=== PATIENT | female | born 1975 | race Hispanic/Latino ===

== ENCOUNTER 2017-04-25 12:57 | Emergency (ER) | payer BC, OTHER ==
--- NOTE | 2017-04-25 14:09 | RAD ---
2 VIEWS CHEST: Date: 04/25/17 COMPARISON: None. HISTORY: Chest pain. FINDINGS: Two views of the chest show normal sized cardiomediastinal silhouette. There is no evidence of conso lidation, mass, or pleural effusion. A cardiac monitoring device projects over the left chest. IMPRESSION: No evidence of acute cardiopulmonary disease. POS: [facility]
[2017-04-25 14:24] LABS: #Basophils 0.1 thou/uL (0.0-0.2); #Eosinphils 0.1 thou/uL (0.0-0.7); #Lymphocytes 3.7 thou/uL (1.20-3.40); #Monocytes 0.7 thou/uL (0.11-0.59); #Neutrophils 7.2 thou/uL (1.40-6.50); %Basophils 0.7 % (0.0-1.0); %Eosinophils 0.5 % (0.0-10.0); %Lymphocytes 31.7 % (21.0-51.0); %Monocytes 5.9 % (0.0-10.0); %Neutrophils 61.1 % (42.0-75.0); Hemoglobin 14.7 g/dL (12.0-16.0); Mean Corpuscular HGB CONC 34.5 g/dL (32.0-36.0); Mean Corpuscular Hemoglobin 35.5 pg (27.0-31.0); Mean Corpuscular Volume 102.7 fl (81.0-99.0); Mean Platelet Volume 9.4 fL (7.4-10.4); Platelet Count 282 thou/uL (130-400); RBC Distribution Width 11.2 % (11.5-14.5); Red Blood Cell (RBC) Count 4.13 mill/uL (4.20-5.40); White Blood Cell (WBC) Count 11.7 thou/uL (4.8-10.8)
[2017-04-25 14:27] LABS: ALT (SGPT) 19 U/L (8-55); AST (SGOT) 16 U/L (5-34); Albumin 3.9 g/dL (3.5-5.0); Alkaline Phosphatase 120 U/L (40-150); Anion Gap 19 mmol/L (10-20); BUN (Urea Nitrogen) 13 mg/dL (7.0-18.7); Bilirubin, Total 0.4 mg/dL (0.2-1.2); Calc. Creatinine Clearance 0 mL/min (70-130); Calcium 9.1 mg/dL (7.8-10.44); Carbon Dioxide 24 mmol/L (22-29); Chloride 101 mmol/L (98-107); Estimated GFR-MDRD 71; Globulin 3.3 g/dL (2.4-3.5); Glucose 74 mg/dL (70-105); Potassium 3.7 mmol/L (3.5-5.1); Protein, Total 7.2 g/dL (6.0-8.3); Sodium 140 mmol/L (136-145)
[2017-04-25 14:34] LABS: CKMB 1.1 ng/mL (0-6.6); Troponin I Less than 0.010 ng/mL (< 0.028)
== END 2017-04-25 15:10 | disposition home or self-care (01) ==
LOC: MADERS 12:57
DX: R00.2 Palpitations (principal); I48.91 Unspecified atrial fibrillation; K21.9 Gastro-esophageal reflux disease without esophagitis; I10 Essential (primary) hypertension; F41.9 Anxiety disorder, unspecified
CPT/HCPCS: 71020; 80053; 82553; 84484; 85025; 85379; 93005; 94760

== ENCOUNTER 2019-07-01 18:24 | Emergency (ER) | payer OTHER ==
[~2019-07-01 18:24] MED LIST: Iopamidol 370 76% 100 ML VIAL ONE
[2019-07-01] MEDS ORDERED: Ondansetron PF 4 MG/2 ML Vial ONE ×2 (19:03→21:42)
[2019-07-01] MEDS ORDERED: Sodium Chloride 0.9% 1,000 ML ONE (19:03)
[2019-07-01] MEDS ORDERED: Dicyclomine 10 MG CAP ONE (19:03)
[2019-07-01 19:14] LABS: #Basophils 0.1 thou/uL (0.0-0.2); #Lymphocytes 1.2 thou/uL (1.20-3.40); #Monocytes 1.1 thou/uL (0.11-0.59); %Basophils 0.7 % (0.0-1.0); %Lymphocytes 7.4 % (21.0-51.0); %Monocytes 6.5 % (0.0-10.0); %Neutrophils 85.4 % (42.0-75.0); Hemoglobin 14.4 g/dL (12.0-16.0); Mean Corpuscular HGB CONC 34.4 g/dL (32.0-36.0); Mean Corpuscular Hemoglobin 33.5 pg (27.0-31.0); Mean Corpuscular Volume 97.4 fL (78.0-98.0); Mean Platelet Volume 10.8 fL (7.4-10.4); Platelet Count 193 thou/uL (130-400); Prothrombin Time 13.1 SEC (12.0-14.7); RBC Distribution Width 11.4 % (11.5-14.5); Red Blood Cell (RBC) Count 4.32 mill/uL (4.20-5.40); White Blood Cell (WBC) Count 16.4 thou/uL (4.8-10.8)
[2019-07-01 19:25] LABS: ALT (SGPT) 20 U/L (8-55); AST (SGOT) 17 U/L (5-34); Albumin 4.2 g/dL (3.5-5.0); Alkaline Phosphatase 98 U/L (40-150); Anion Gap 16 mmol/L (10-20); BUN (Urea Nitrogen) 15 mg/dL (7.0-18.7); Bilirubin, Total 0.5 mg/dL (0.2-1.2); Calc. Creatinine Clearance 0 mL/min (70-130); Calcium 9.2 mg/dL (7.8-10.44); Carbon Dioxide 23 mmol/L (22-29); Chloride 104 mmol/L (98-107); Estimated GFR-MDRD 76; Globulin 3.2 g/dL (2.4-3.5); Glucose 107 mg/dL (70-105); Potassium 3.3 mmol/L (3.5-5.1); Protein, Total 7.4 g/dL (6.0-8.3); Sodium 140 mmol/L (136-145)
[2019-07-01] MEDS ORDERED: Fentanyl 100 MCG/2 ML VIAL ONE ×2 (19:54→21:11)
[2019-07-01] MEDS ORDERED: Ciprofloxacin 500 MG TAB ONE (20:33)
--- NOTE | 2019-07-01 21:16 | CT ---
CT Abdomen Pelvis W Con HISTORY: Abdominal pain with onset of bloody diarrhea today. COMPARISON: 03/11/2019 exam. FINDINGS: The lung bases are clear of any infiltrative process. The liver, spleen and pancreas regions appear unremarkable. The gallbladder is been removed. A gastri c sleeve procedure is been performed. Right and left adrenal glands are normal. There is cortical scarring involving the right kidney. Left kidney is normal in appearance. There is no significant periaortic or mesenteric adenopathy. The colon is not distended however there is evidence of colon wall thickening particularly involving the left colon but also changes on the right. Celiac and superior mesenteric arteries are patent and and TRE is identified. There is no pneumatosis. No free air. CT of pelvis performed with contrast: A 3.3 cm cyst is seen in the region of the left adnexa. No free fluid, adenopathy or mass. IMPRESSION: Findings of a diffuse colitis. The wall thickening is particularly pronounced within the left colon. No pneumatosis identified. Findings telephoned to Dr. Cesar.
[2019-07-01] MEDS ORDERED: metroNIDAZOLE 500 MG/100 ML BAG ONE (21:19)
== END 2019-07-01 22:10 | disposition short-term general hospital (02) ==
LOC: MADERS 18:24
DX: K52.9 Noninfective gastroenteritis and colitis, unspecified (principal); I49.9 Cardiac arrhythmia, unspecified; I48.91 Unspecified atrial fibrillation; K21.9 Gastro-esophageal reflux disease without esophagitis; I10 Essential (primary) hypertension; M79.7 Fibromyalgia; F41.9 Anxiety disorder, unspecified; Z79.899 Other long term (current) drug therapy; Z79.82 Long term (current) use of aspirin
CPT/HCPCS: 74177; 80053; 83605; 85025; 85610; 85730; 96361; 96365; 96375; 96376; J2405; J3010; J7050; Q9967

== ENCOUNTER 2019-11-22 10:09 | Emergency (ER) | payer OTHER, SELFPAY ==
[2019-11-22 11:07] LABS: #Basophils 0.1 thou/uL (0.0-0.2); #Eosinphils 0.1 thou/uL (0.0-0.7); #Lymphocytes 3.3 thou/uL (1.20-3.40); #Monocytes 0.7 thou/uL (0.11-0.59); #Neutrophils 2.4 thou/uL (1.40-6.50); %Basophils 1.3 % (0.0-1.0); %Eosinophils 1.9 % (0.0-10.0); %Lymphocytes 49.8 % (21.0-51.0); %Monocytes 10.2 % (0.0-10.0); %Neutrophils 36.8 % (42.0-75.0); Hemoglobin 12.8 g/dL (12.0-16.0); Platelet Count 218 thou/uL (130-400); RBC Distribution Width 10.7 % (11.5-14.5); White Blood Cell (WBC) Count 6.5 thou/uL (4.8-10.8)
[2019-11-22] MEDS ORDERED: Prochlorperazine 10 MG/2 ML VIAL ONE (11:09)
[2019-11-22] MEDS ORDERED: Morphine 2 MG/ML SYRINGE ONE (11:09)
[2019-11-22] MEDS ORDERED: Sodium Chloride 0.9% 1,000 ML ONE ×2 (11:09→12:35)
[2019-11-22] MEDS ORDERED: Pantoprazole 40 MG VIAL ONE (11:09)
[2019-11-22 11:14] LABS: ALT (SGPT) 12 U/L (8-55); AST (SGOT) 15 U/L (5-34); Alkaline Phosphatase 79 U/L (40-110); Anion Gap 16 mmol/L (10-20); BUN (Urea Nitrogen) 11 mg/dL (7.0-18.7); Bilirubin, Total 0.8 mg/dL (0.2-1.2); Calc. Creatinine Clearance 0 mL/min (70-130); Carbon Dioxide 24 mmol/L (22-29); Chloride 107 mmol/L (98-107); Estimated GFR-MDRD 89; Globulin 2.8 g/dL (2.4-3.5); Glucose 83 mg/dL (70-105); Lipase 9 U/L (8-78); Potassium 3.5 mmol/L (3.5-5.1); Protein, Total 6.8 g/dL (6.0-8.3); Sodium 143 mmol/L (136-145)
[2019-11-22] MEDS ORDERED: diphenhydrAMINE 50 MG/ML VIAL ONE (11:22)
[2019-11-22] MEDS ORDERED: Iopamidol 370 76% 100 ML VIAL ONE (11:39)
--- NOTE | 2019-11-22 11:51 | CT ---
CT OF THE ABDOMEN AND PELVIS WITH IV CONTRAST INDICATION: Abdominal pains with nausea vomiting COMPARISON: CT the abdomen and pelvis dated 07/01/2019 FINDINGS: ABDOMEN: Lung bases: Clear Liver: No focal lesion. Gallbladder: Surgically absent Pancreas: Normal. Adrenal glands: Normal. Spleen: Normal. Kidneys and ureters: Lobulated appearance of the right kidney is stable. Mild atrophy of the right ki dney is stable appearing. No hydronephrosis evident. Left kidney is normal-appearing. Vasculature: Normal. Lymph nodes:No lymphadenopathy. Free fluid in abdomen:No free fluid is evident. PELVIS: Small and large bowel: There is postsurgical change of the gastroplasty. There is mild T stool within the colon. Small bowel is of normal caliber. Appendix:Not definitely seen Bladder: Decompressed Rectal and perirectal soft tissues:Normal. Reproductive structures: Not visualized Free fluid in pelvis: No free fluid is evident. Lymphadenopathy pelvis: No lymphadenopathy is evident. Osseous structures: No acute osseous abnormality. No destructive osteolytic or osteoblastic lesion i s identified. There is scattered degenerative and osteoarthritic changes. Soft tissues:Normal. IMPRESSION: 1. No acute abnormality.
[2019-11-22] MEDS ORDERED: Fentanyl 100 MCG/2 ML VIAL ONE ×3 (11:59→14:31)
[2019-11-22] MEDS ORDERED: Ondansetron PF 4 MG/2 ML Vial ONE (12:18)
[2019-11-22 14:14] LABS: Bilirubin Negative (Negative); Blood, Urine Negative (Negative); Clarity Clear (Clear); Glucose, Urine (Dipstick) Negative (Negative); Leukocyte Negative (Negative); Nitrite Negative (Negative); Protein, Urine (Dipstick) Negative (Neg-Trace); Urobilinogen 0.2 mg/dL (Less than 2)
[2019-11-22] MEDS ORDERED: Lidocaine Viscous Sol 2% 15 ml UD Cup ONE (14:21)
[2019-11-22] MEDS ORDERED: Lidocaine 2% PF 100 mg/5 ml Syringe ONE (14:25)
== END 2019-11-22 15:48 | disposition short-term general hospital (02) ==
LOC: MADERS 10:09
DX: R11.2 Nausea with vomiting, unspecified (principal); R10.9 Unspecified abdominal pain; K21.9 Gastro-esophageal reflux disease without esophagitis; G47.30 Sleep apnea, unspecified; I10 Essential (primary) hypertension; F41.9 Anxiety disorder, unspecified; Z79.899 Other long term (current) drug therapy; Z79.82 Long term (current) use of aspirin
CPT/HCPCS: 74177; 80053; 81003; 83605; 83690; 85025; 96361; 96374; 96375; 96376; C9113; J0780; J1200; J2001; J2270; J2405; J3010; J7050; Q9967

== ENCOUNTER → 2019-12-05 | Day surgery (SDC) | payer OTHER ==
[~2019-12-05] MED LIST changes: -Iopamidol 370 76% 100 ML VIAL ONE; +Multivit, Adult Inj 10 ML VIAL ONE; +Ondansetron PF 4 MG/2 ML Vial ONE; +Sodium Chloride 0.9% 1,000 ML BAG ONE
== END ==
LOC: MADER/OP 10:29
PROVIDERS: ATTEND Surgery
DX: E86.0 Dehydration (principal); Z88.5 Allergy status to narcotic agent
CPT/HCPCS: 96361; 96365; 96375; 96376; J2405; J7050

== ENCOUNTER 2020-01-31 11:24 | Outpatient (CLI) | payer OTHER ==
[2020-01-31 12:17] LABS: #Eosinphils 0.1 thou/uL (0.0-0.7); #Lymphocytes 2.2 thou/uL (1.20-3.40); #Monocytes 0.4 thou/uL (0.11-0.59); #Neutrophils 3.9 thou/uL (1.40-6.50); %Basophils 0.6 % (0.0-1.0); %Eosinophils 1.7 % (0.0-10.0); %Lymphocytes 32.2 % (21.0-51.0); %Monocytes 6.6 % (0.0-10.0); %Neutrophils 58.9 % (42.0-75.0); Hemoglobin 12.8 g/dL (12.0-16.0); Mean Corpuscular HGB CONC 31.9 g/dL (32.0-36.0); Mean Corpuscular Hemoglobin 32.7 pg (27.0-31.0); Mean Corpuscular Volume 102.3 fL (78.0-98.0); Platelet Count 215 thou/uL (130-400); White Blood Cell (WBC) Count 6.7 thou/uL (4.8-10.8)
--- NOTE | 2020-01-31 12:32 | RAD ---
EXAM: Chest PA and lateral: HISTORY: Fever. Cough. Pain. COMPARISON: 03/03/2019 FINDINGS: Loop recorder is noted. Heart: Normal cardiac silhouette Aorta: Unremarkable Pulmonary vessels: Normal Costophrenic angles: Costophrenic angles are clear. Lungs: No consolidation or masses. Pneumothorax: No pneumothorax Osseous structures: No osseous abnormalities IMPRESSION: No acute cardiopulmonary process.
[2020-01-31 12:54] LABS: Bilirubin Negative (Negative); Blood, Urine Trace (Negative); Glucose, Urine (Dipstick) Negative (Negative); Leukocyte Negative (Negative); Nitrite Negative (Negative); Protein, Urine (Dipstick) Negative (Neg-Trace); Urobilinogen 0.2 mg/dL (Less than 2)
[2020-01-31 13:03] LABS: Anion Gap 12 mmol/L (10-20); BUN (Urea Nitrogen) 10 mg/dL (7.0-18.7); Calc. Creatinine Clearance 0 mL/min (70-130); Calcium 8.8 mg/dL (7.8-10.44); Carbon Dioxide 24 mmol/L (22-29); Chloride 109 mmol/L (98-107); Clarity Hazy (Clear); Estimated GFR-MDRD 79; Glucose 82 mg/dL (70-105); Potassium 3.8 mmol/L (3.5-5.1); Sodium 141 mmol/L (136-145)
[2020-01-31 13:05] LABS: Urine Culture Reflex No No
[2020-01-31 13:07] LABS: Bacteria/HPF 2+ HPF (None Seen); RBC/HPF 0-3 HPF (0-3); WBC/HPF None Seen HPF (0-3)
== END 2020-01-31 11:25 | disposition home or self-care (01) ==
LOC: MADLAB 11:24
PROVIDERS: ATTEND Family Medicine
DX: R10.32 Left lower quadrant pain (principal); R19.7 Diarrhea, unspecified; R05 Cough; R50.9 Fever, unspecified
CPT/HCPCS: 36415; 71046; 80048; 81001; 85025; 87040

== ENCOUNTER 2020-02-09 07:23 | Outpatient (CLI) | payer OTHER ==
--- NOTE | 2020-02-09 09:22 | CT ---
CT ABDOMEN AND PELVIS WITH CONTRAST: HISTORY: Lower quadrant pain. COMPARISON: CT 11/22/2019, 11/24/2019. FINDINGS: Lung bases are clear. No pericardial effusion. Common bile duct measures up to 8 mm. Prior gastric surgery. No dilated loops of large or small bowel. No free intraperitoneal gas or fluid. No retroperitoneal or periaortic adenopathy. The spleen is unremarkable. Adrenal glands are unremarkable. No hydroureteral nephrosis. There is a subtle subcapsular hypodensity hepatic segment 7 axial image 13 measuring approximately 11 mm. The right kidney is smaller relative to the left. There is no acute osseous abnormality. IMPRESSION: 1. No acute inflammatory process in the abdomen or pelvis. 2. No bowel obstruction. 3. An 11 mm hypodensity hepatic segment 7. A followup nonemergent MRI liver protocol in 6 months is recommended. 4. Multifocal scarring of the right kidney which is asymmetrically smaller than the left kidney. POS: [facility]
== END 2020-02-09 07:24 | disposition home or self-care (01) ==
LOC: MADCT 07:23
PROVIDERS: ATTEND Family Medicine
DX: R10.32 Left lower quadrant pain (principal); R19.7 Diarrhea, unspecified; K76.89 Other specified diseases of liver; N28.89 Other specified disorders of kidney and ureter
CPT/HCPCS: 74177

== ENCOUNTER 2020-05-03 17:38 | Emergency (ER) | payer OTHER ==
[2020-05-03] MEDS ORDERED: Iopamidol 370 76% 100 ML VIAL IV ONE (17:39)
[2020-05-03] MEDS ORDERED: Morphine 4 MG/ML VIAL ONE ×3 (18:26→22:57)
[2020-05-03] MEDS ORDERED: Sodium Chloride 0.9% 1,000 ML ONE (18:26)
[2020-05-03] MEDS ORDERED: Promethazine HCl 25 MG/ML VIAL ONE (18:26)
[2020-05-03 18:44] LABS: #Basophils 0.1 thou/uL (0.0-0.2); #Eosinphils 0.2 thou/uL (0.0-0.7); #Lymphocytes 3.2 thou/uL (1.20-3.40); #Monocytes 0.9 thou/uL (0.11-0.59); #Neutrophils 7.2 thou/uL (1.40-6.50); %Basophils 0.8 % (0.0-1.0); %Eosinophils 1.4 % (0.0-10.0); %Lymphocytes 27.8 % (21.0-51.0); %Monocytes 7.6 % (0.0-10.0); %Neutrophils 62.4 % (42.0-75.0); Hemoglobin 11.5 g/dL (12.0-16.0); MDiff Complete? YES; Mean Corpuscular HGB CONC 33.3 g/dL (32.0-36.0); Mean Corpuscular Hemoglobin 34.2 pg (27.0-31.0); Mean Corpuscular Volume 102.5 fL (78.0-98.0); Mean Platelet Volume 9.4 fL (7.4-10.4); Platelet Count 282 thou/uL (130-400); RBC Distribution Width 11.3 % (11.5-14.5); Red Blood Cell (RBC) Count 3.38 mill/uL (4.20-5.40); White Blood Cell (WBC) Count 11.5 thou/uL (4.8-10.8)
[2020-05-03 18:45] LABS: Macrocytosis SLIGHT = 6-15 cells (100X) (0-5/hpf)
[2020-05-03 18:46] LABS: ALT (SGPT) 26 U/L (8-55); AST (SGOT) 24 U/L (5-34); Alkaline Phosphatase 107 U/L (40-110); Anion Gap 16 mmol/L (10-20); BUN (Urea Nitrogen) 14 mg/dL (7.0-18.7); Bilirubin, Total 0.3 mg/dL (0.2-1.2); Calc. Creatinine Clearance 0 mL/min (70-130); Calcium 8.3 mg/dL (7.8-10.44); Carbon Dioxide 25 mmol/L (22-29); Chloride 104 mmol/L (98-107); Estimated GFR-MDRD Greater than 90; Glucose 85 mg/dL (70-105); Lipase 15 U/L (8-78); Potassium 3.6 mmol/L (3.5-5.1); Sodium 141 mmol/L (136-145)
[2020-05-03 20:18] LABS: Bilirubin Negative (Negative); Blood, Urine Negative (Negative); Clarity Clear (Clear); Glucose, Urine (Dipstick) Negative (Negative); Ketone, Urine Negative (Negative); Leukocyte Negative (Negative); Nitrite Negative (Negative); Protein, Urine (Dipstick) Negative (Neg-Trace); Urobilinogen 0.2 mg/dL (Less than 2)
[2020-05-03] MEDS ORDERED: Morphine 10 MG/ML VIAL ONE (20:34)
--- NOTE | 2020-05-03 20:50 | CT ---
CT ABDOMEN AND PELVIS WITH IV CONTRAST: 05/03/20 Oral contrast was administered. INDICATIONS: Left lower quadrant pain. Gastric sleeve procedure 03/06 with hernia repair. Gastric bypass in 01/2020. J-tube placed 03/2020. Comparison made to recent CT abdomen and pelvis of 02/21/20. FINDINGS: Lung bases are clear. Liver again shows prominence of the intra and extrahepatic biliary ducts. This is stable from the rec ent exam. Patient is post cholecystectomy. Liver, spleen and pancreas otherwise unremarkable and unch anged in appearance. Postoperative changes involving the stomach with bypass change. The adrenal glan ds and kidneys are unremarkable. The small bowel loops are opacified. There is a J-tube entering the left abdomen and this appears navjot quately positioned. There is a dilated loop of jejunum in the left mid abdomen with mild mural thicke marvin. The J-tube is coiled within this loop of jejunum. This may be at the jejunojejunal anastomosis. The more proximal cara of is mildly dilated. Prominent stool is seen throughout the colon. Urinary bladder is distended. IMPRESSION: Mild nonspecific small bowel distention. A J-tube enters the left mid abdomen and is positioned withi n a loop of jejunum which is mildly dilated and exhibits mild mural thickening near the jejunojejuna l anastomosis. The J-tube is coiled within this dilated loop of jejunum. POS: [facility]
[2020-05-03] MEDS ORDERED: Ondansetron PF 4 MG/2 ML Vial ONE (22:57)
[2020-05-03] MEDS ORDERED: Morphine 2 MG/ML SYRINGE ONE (22:57)
[2020-05-03] MEDS ORDERED: Piperacillin/Tazobactam 3.375 GM VIAL ONE (22:58)
[2020-05-03] MEDS ORDERED: Sodium Chloride 0.9% 100 ML ONE (22:59)
== END 2020-05-03 23:36 | disposition short-term general hospital (02) ==
LOC: MADERS 17:38
DX: R10.32 Left lower quadrant pain (principal); R11.2 Nausea with vomiting, unspecified; I48.91 Unspecified atrial fibrillation; K21.9 Gastro-esophageal reflux disease without esophagitis; F41.9 Anxiety disorder, unspecified; Z79.899 Other long term (current) drug therapy
CPT/HCPCS: 74177; 80053; 81003; 83605; 83690; 85025; 96365; 96367; 96375; 96376; J2270; J2405; J2543; J2550; J3490; J7050; Q9967

== ENCOUNTER 2021-03-11 19:29 | Emergency (ER) | payer BC, SELFPAY ==
[~2021-03-11 19:29] MED LIST changes: +Iopamidol 370 76% 100 ML VIAL ONE; -Multivit, Adult Inj 10 ML VIAL ONE; -Ondansetron PF 4 MG/2 ML Vial ONE; -Sodium Chloride 0.9% 1,000 ML BAG ONE
[2021-03-11] MEDS ORDERED: Fentanyl 100 MCG/2 ML VIAL ONE (20:24)
[2021-03-11] MEDS ORDERED: Promethazine HCl 25 MG/ML VIAL ONE (20:24)
[2021-03-11] MEDS ORDERED: Sodium Chloride 0.9% 1,000 ML ONE (20:24)
[2021-03-11 20:45] LABS: #Basophils 0.1 thou/uL (0.0-0.2); #Lymphocytes 2.3 thou/uL (1.20-3.40); #Monocytes 0.6 thou/uL (0.11-0.59); #Neutrophils 4.8 thou/uL (1.40-6.50); %Basophils 0.7 % (0.0-1.0); %Eosinophils 0.5 % (0.0-10.0); %Lymphocytes 29.6 % (21.0-51.0); %Monocytes 7.3 % (0.0-10.0); %Neutrophils 61.9 % (42.0-75.0); Hemoglobin 12.6 g/dL (12.0-16.0); Large Platelets SLIGHT; MDiff Complete? YES; Macrocytosis SLIGHT = 6-15 cells (100X) (0-5/hpf); Mean Corpuscular HGB CONC 32.3 g/dL (32.0-36.0); Mean Corpuscular Volume 105.4 fL (78.0-98.0); Mean Platelet Volume 9.1 fL (7.4-10.4); Platelet Count 201 thou/uL (130-400); Platelet Morphology Comment Appears Adequate; RBC Distribution Width 10.4 % (11.5-14.5); Red Blood Cell (RBC) Count 3.72 mill/uL (4.20-5.40); White Blood Cell (WBC) Count 7.7 thou/uL (4.8-10.8)
[2021-03-11 20:53] LABS: ALT (SGPT) 19 U/L (8-55); AST (SGOT) 22 U/L (5-34); Albumin 4.3 g/dL (3.5-5.0); Alkaline Phosphatase 89 U/L (40-110); Anion Gap 14 mmol/L (10-20); BUN (Urea Nitrogen) 14 mg/dL (7.0-18.7); Bilirubin, Total 0.8 mg/dL (0.2-1.2); Calc. Creatinine Clearance 0 mL/min (70-130); Calcium 8.7 mg/dL (7.8-10.44); Carbon Dioxide 25 mmol/L (22-29); Chloride 107 mmol/L (98-107); Globulin 3.1 g/dL (2.4-3.5); Glucose 100 mg/dL (70-105); Lipase 11 U/L (8-78); Potassium 4.1 mmol/L (3.5-5.1); Protein, Total 7.4 g/dL (6.0-8.3); Sodium 142 mmol/L (136-145)
== END 2021-03-11 23:35 | disposition home or self-care (01) ==
LOC: MADERS 19:29
DX: R10.84 Generalized abdominal pain (principal); R11.2 Nausea with vomiting, unspecified; I48.91 Unspecified atrial fibrillation; I10 Essential (primary) hypertension; K21.9 Gastro-esophageal reflux disease without esophagitis; G47.30 Sleep apnea, unspecified; Z79.899 Other long term (current) drug therapy
CPT/HCPCS: 74177; 80053; 83605; 83690; 85025; 96365; 96375; J2550; J3010; J7050; Q9967

== ENCOUNTER 2021-03-19 07:54 | Emergency (ER) | payer BC ==
[~2021-03-19 07:54] MED LIST changes: -Iopamidol 370 76% 100 ML VIAL ONE; +Sodium Chloride 0.9% 1,000 ML BAG ONE
[2021-03-19] MEDS ORDERED: Ondansetron PF 4 MG/2 ML Vial ONE (08:17)
[2021-03-19] MEDS ORDERED: Morphine 4 MG/ML VIAL ONE ×2 (08:37→09:42)
[2021-03-19 08:48] LABS: #Basophils 0.1 thou/uL (0.0-0.2); #Eosinphils 0.1 thou/uL (0.0-0.7); #Lymphocytes 1.3 thou/uL (1.20-3.40); #Monocytes 0.8 thou/uL (0.11-0.59); #Neutrophils 9.6 thou/uL (1.40-6.50); %Basophils 0.8 % (0.0-1.0); %Eosinophils 0.5 % (0.0-10.0); %Lymphocytes 10.9 % (21.0-51.0); %Monocytes 6.5 % (0.0-10.0); %Neutrophils 81.2 % (42.0-75.0); Hemoglobin 13.3 g/dL (12.0-16.0); Mean Corpuscular HGB CONC 31.5 g/dL (32.0-36.0); Mean Corpuscular Hemoglobin 33.6 pg (27.0-31.0); Mean Corpuscular Volume 106.9 fL (78.0-98.0); Mean Platelet Volume 12.7 fL (7.4-10.4); Platelet Count 173 thou/uL (130-400); RBC Distribution Width 10.7 % (11.5-14.5); Red Blood Cell (RBC) Count 3.89 mill/uL (4.20-5.40); White Blood Cell (WBC) Count 11.9 thou/uL (4.8-10.8)
[2021-03-19 08:50] LABS: Macrocytosis SLIGHT = 6-15 cells (100X) (0-5/hpf); Platelet Morphology Comment Appears Adequate
[2021-03-19 08:54] LABS: ALT (SGPT) 30 U/L (8-55); AST (SGOT) 26 U/L (5-34); Albumin 4.3 g/dL (3.5-5.0); Alkaline Phosphatase 117 U/L (40-110); Anion Gap 13 mmol/L (10-20); BUN (Urea Nitrogen) 21 mg/dL (7.0-18.7); Bilirubin, Total 0.4 mg/dL (0.2-1.2); Calc. Creatinine Clearance 0 mL/min (70-130); Calcium 8.6 mg/dL (7.8-10.44); Carbon Dioxide 28 mmol/L (22-29); Chloride 99 mmol/L (98-107); Globulin 3.4 g/dL (2.4-3.5); Glucose 121 mg/dL (70-105); Lipase 9 U/L (8-78); Potassium 3.9 mmol/L (3.5-5.1); Protein, Total 7.7 g/dL (6.0-8.3); Sodium 136 mmol/L (136-145)
[2021-03-19] MEDS ORDERED: Sodium Chloride 0.9% 50 ML ONE (09:47)
[2021-03-19] MEDS ORDERED: Promethazine HCl 25 MG/ML VIAL ONE (09:47)
[2021-03-19] MEDS ORDERED: Albumin 25% 100 ML ONE (09:52)
[2021-03-19] MEDS ORDERED: diphenhydrAMINE 50 MG/ML VIAL ONE (09:57)
[2021-03-19] MEDS ORDERED: methylPREDNISolone Sod Succ/PF 125 MG/2 ML VIAL ONE (09:57)
[2021-03-19] MEDS ORDERED: Iopamidol 370 76% 100 ML VIAL ONE (12:52)
== END 2021-03-19 11:28 | disposition short-term general hospital (02) ==
LOC: MADERS 07:54
DX: I31.3 Pericardial effusion (noninflammatory) (principal); T82.524A Displacement of infusion catheter, initial encounter; I48.91 Unspecified atrial fibrillation; K21.9 Gastro-esophageal reflux disease without esophagitis; I10 Essential (primary) hypertension; G47.30 Sleep apnea, unspecified; Z79.891 Long term (current) use of opiate analgesic; Z79.899 Other long term (current) drug therapy
CPT/HCPCS: 71260; 80053; 83605; 83690; 83880; 84484; 85025; 93005; 96365; 96375; 96376; J1200; J2270; J2405; J2550; J2930; J7050; P9047; Q9967